=== PATIENT | female | born 1995 | race Caucasian/White ===

== ENCOUNTER 2018-10-18 17:09 | Emergency (ER) | payer OTHER ==
[2018-10-18] MEDS ORDERED: NS 1,000 ML IV ONE (17:37)
[2018-10-18 17:45] LABS: PLATELET COUNT 249 10^3/uL (150-400)
--- NOTE | 2018-10-18 18:42 | EDPHY ---
H & P Stated Complaint: vaginal bleeding x 1 week L lower and upper abd pain-~8wks preg by dates Time Seen by Provider: 10/18/18 17:19 HPI/ROS: Chief complaint: with pelvic pain and vaginal bleeding History of present illness: This is a 22-year-old female, 1, para 0 who believes she is currently 8 weeks who presents to the emergency department with pelvic pain and vaginal bleeding. She states she has had mild vaginal bleeding for the last few days. There has been some clot passage. She has now started developed some pelvic pain, primarily on the left. She is concerned she has an ectopic or is having a miscarriage. She denies other associated signs or symptoms including fevers, no urinary or bowel habit changes, no nausea or vomiting, no systemic symptoms such as dizziness, lightheadedness or fatigue. She has not seen an OBGYN as of yet. Review of systems: A 10 point review of systems was obtained and other than described above was negative - Personal History LMP (Females 10-55): Now - Medical/Surgical History Hx Asthma: No Hx Chronic Respiratory Disease: No Hx Diabetes: No Hx Cardiac Disease: No Hx Renal Disease: No Hx Cirrhosis: No Hx Alcoholism: No Hx HIV/AIDS: No Hx Splenectomy or Spleen Trauma: No Other PMH: denies - Social History Smoking Status: Never smoked - Physical Exam Exam: General Appearance: Alert, no distress. Eyes: Pupils equal and round no pallor or injection. ENT, Mouth: Mucous membranes moist. Respiratory: There are no retractions, lungs are clear to auscultation. Cardiovascular: Regular rate and rhythm. Gastrointestinal: Abdomen is soft and non tender, no masses, bowel sounds normal. Neurological: Alert and oriented x4. Strength and sensation intact and symmetrical. Skin: Warm and dry, no rashes. Musculoskeletal: Neck is supple non tender. Extremities are symmetrical, full range of motion. Psychiatric: Patient is oriented X 3, there is no agitation. Constitutional: Initial Vital Signs Temperature (C) 37.0 C 10/18/18 17:10 Heart Rate 89 10/18/18 17:10 Respiratory Rate 16 10/18/18 17:10 Blood Pressure 101/65 10/18/18 17:10 O2 Sat (%) 97 10/18/18 17:10 O2 Delivery Mode Room Air Allergies/Adverse Reactions: No Known Allergies Allergy (Unverified 10/18/18 17:10) Home Medications: Medication Instructions Recorded NK [No Known Home Meds] 10/18/18 Medical Decision Making - Diagnostics Imaging Results: Imaging Impressions Obstetrics Ultrasound 10/18/18 17:37 Impression: No intrauterine is visualized which could have already passed with a history of bleeding. Correlate to beta hCG for possible ectopic . Endometrial stripe measures 10 mm with some mild vascularity so component of retained product of conception cannot be excluded. Results called and discussed with DEVON Fritz at 10/18/2018 18:28. Imaging: Discussed imaging studies w/ call box wirer Radiologist ED Course/Re-evaluation: Patient is discussed with my secondary supervising physician Dr. Deion Castorena. Patient presents to the emergency department, she believes she is 8 weeks , she has vaginal bleeding and pelvic pain. Blood studies show a normal H&H. HCG in the mid 800s. Ultrasound does not show significant findings. I have discussed with her the multiple causes of her symptoms, likely a miscarriage although we cannot rule out ectopic at this time. Her blood type is B negative, she will be given RhoGAM. She remains hemodynamically stable. I have offered pain medication but she has declined. I have asked her to follow up with an OBGYN on Saturday for repeat HCG. She is given strict return precautions. The patient voiced understanding and agreement with plan. Differential Diagnosis: Included but not limited to , different types of miscarriages, ectopic - Data Points Laboratory Results: Laboratory Results 10/18/18 17:30 10/18/18 17:30 10/18/18 10/18/18 10/18/18 17:45 17:30 17:30 WBC RBC Hgb Hct MCV MCH MCHC RDW Plt Count MPV Neut % (Auto) Lymph % (Auto) [place] % (Auto) Eos % (Auto) Baso % (Auto) Nucleat RBC Rel Count Absolute Neuts (auto) Absolute Lymphs (auto) Absolute Monos (auto) Absolute Eos (auto) Absolute Basos (auto) Absolute Nucleated RBC Immature Gran % Immature Gran # Sodium 141 mEq/L mEq/L (135-145) Potassium 3.7 mEq/L mEq/L (3.3-5.0) Chloride 106 mEq/L mEq/L (97-110) Carbon Dioxide 24 mEq/l mEq/l (22-31) Anion Gap 11 mEq/L mEq/L (6-14) BUN 11 mg/dL mg/dL (7-23) Creatinine 0.8 mg/dL mg/dL (0.6-1.0) Estimated GFR > 60 Glucose 93 mg/dL mg/dL (70-100) Calcium 9.5 mg/dL mg/dL (8.5-10.4) Beta HCG, Quant 841.30 mIU/mL H mIU/mL (0.00-4.83) Urine Color YELLOW Urine Appearance HAZY Urine pH 5.0 (5.0-7.5) Ur Specific [place] 1.013 (1.002-1.030) Urine Protein NEGATIVE (NEGATIVE) Urine Ketones TRACE H (NEGATIVE) Urine Blood 2+ H (NEGATIVE) Urine Nitrate NEGATIVE (NEGATIVE) Urine Bilirubin NEGATIVE (NEGATIVE) Urine Urobilinogen NEGATIVE EU EU (0.2-1.0) Ur Leukocyte Esterase TRACE H (NEGATIVE) Urine RBC 1-3 /hpf /hpf (0-3) Urine WBC 1-3 /hpf /hpf (0-3) Ur Epithelial Cells TRACE /lpf /lpf (NONE-1+) Urine Mucus 1+ /lpf /lpf (NONE-1+) Urine Glucose NEGATIVE (NEGATIVE) Patient ABO/Rh B NEGATIVE Antibody Screen NEGATIVE 10/18/18 17:30 WBC 6.86 10^3/uL 10^3/uL (3.80-9.50) RBC 4.35 10^6/uL 10^6/uL (4.18-5.33) Hgb 13.1 g/dL g/dL (12.6-16.3) Hct 39.1 % % (38.0-47.0) MCV 89.9 fL fL (81.5-99.8) MCH 30.1 pg pg (27.9-34.1) MCHC 33.5 g/dL g/dL (32.4-36.7) RDW 12.5 % % (11.5-15.2) Plt Count 249 10^3/uL 10^3/uL (150-400) MPV 12.5 fL H fL (8.7-11.7) Neut % (Auto) 52.1 % % (39.3-74.2) Lymph % (Auto) 40.1 % % (15.0-45.0) [place] % (Auto) 6.0 % % (4.5-13.0) Eos % (Auto) 0.9 % % (0.6-7.6) Baso % (Auto) 0.6 % % (0.3-1.7) Nucleat RBC Rel Count 0.0 % % (0.0-0.2) Absolute Neuts (auto) 3.58 10^3/uL 10^3/uL (1.70-6.50) Absolute Lymphs (auto) 2.75 10^3/uL 10^3/uL (1.00-3.00) Absolute Monos (auto) 0.41 10^3/uL 10^3/uL (0.30-0.80) Absolute Eos (auto) 0.06 10^3/uL 10^3/uL (0.03-0.40) Absolute Basos (auto) 0.04 10^3/uL 10^3/uL (0.02-0.10) Absolute Nucleated RBC 0.00 10^3/uL 10^3/uL (0-0.01) Immature Gran % 0.3 % % (0.0-1.1) Immature Gran # 0.02 10^3/uL 10^3/uL (0.00-0.10) Sodium Potassium Chloride Carbon Dioxide Anion Gap BUN Creatinine Estimated GFR Glucose Calcium Beta HCG, Quant Urine Color Urine Appearance Urine pH Ur Specific [place] Urine Protein Urine Ketones Urine Blood Urine Nitrate Urine Bilirubin Urine Urobilinogen Ur Leukocyte Esterase Urine RBC Urine WBC Ur Epithelial Cells Urine Mucus Urine Glucose Patient ABO/Rh Antibody Screen Medications Given: Discontinued Medications Sodium Chloride (Ns) 1,000 mls @ 0 mls/hr IV EDNOW ONE; Wide Open PRN Reason: Protocol Stop: 10/18/18 17:38 Last Admin: 10/18/18 17:43 Dose: 1,000 mls Departure - Departure Disposition: Home, Routine, Self-Care Clinical Impression: Threatened Condition: Good Instructions: Threatened Miscarriage (ED) Additional Instructions: Please follow-up with your OBGYN or our OBGYN on Saturday for recheck and a repeat HCG You're HCG this evening was 841.30 You can let your OBGYN know that your blood type is B negative and you were given RhoGAM in the emergency department You can take Tylenol for discomfort as directed on the label. Avoid the use of NSAIDs such as ibuprofen, Motrin, Advil, Aleve until told you can use these by your OBGYN. If symptoms worsen or new symptoms develop including increasing pain, increasing bleeding or any other signs or symptoms return immediately to the emergency department Referrals: NONE *PRIMARY CARE P,. [Primary Care Provider] - As per Instructions Glenys Roblero MD [Medical Doctor] - As per Instructions
[2018-10-18 19:43] VITALS: BP 111/62
== END 2018-10-18 19:36 | disposition home or self-care (01) ==
DX: O26.851 Spotting complicating pregnancy, first trimester (principal); Z3A.01 Less than 8 weeks gestation of pregnancy

== ENCOUNTER 2019-02-22 11:07 | Emergency (ER) | payer OTHER ==
[2019-02-22] MEDS ORDERED: ONDANSETRON 4 MG/2 ML VIAL IVP ONE (11:46)
[2019-02-22] MEDS ORDERED: NS 1,000 ML IV ONE (11:46)
--- NOTE | 2019-02-22 11:49 | EDPHY ---
H & P Stated Complaint: Left lower tooth infection, on antibiotics, vomited blood. Time Seen by Provider: 02/22/19 11:17 HPI/ROS: CHIEF COMPLAINT: Dental infection, single episode of hematemesis HISTORY OF PRESENT ILLNESS: The patient has had several day history of a dental infection. She saw a dentist last week who started her on antibiotics and has referred her to a oral surgeon. The patient is taking Advil and had been on amoxicillin. Secondary to increasing pain she went to urgent care and was switched to doxycycline today. After taking doxycycline she had an episode of vomiting. She reported some hematemesis. The patient denies any melena or epigastric pain. She has no history of GI bleeding. The patient does have decreased appetite an upset stomach. REVIEW OF SYSTEMS: A comprehensive 10 point review of systems is otherwise negative aside from elements mentioned in the history of present illness. Source: Patient Exam Limitations: No limitations - Personal History Current Tetanus Diphtheria and Acellular Pertussis (TDAP): Yes - Medical/Surgical History Hx Asthma: No Hx Chronic Respiratory Disease: No Hx Diabetes: No Hx Cardiac Disease: No Hx Renal Disease: No Hx Cirrhosis: No Hx Alcoholism: No Hx HIV/AIDS: No Hx Splenectomy or Spleen Trauma: No Other PMH: denies - Social History Smoking Status: Never smoked - Physical Exam Exam: General Appearance: Alert, no distress Eyes: Pupils equal and round no pallor or injection ENT, Mouth: Mild left-sided mandibular swelling, no trismus Respiratory: There are no retractions, lungs are clear to auscultation Cardiovascular: Regular rate and rhythm Gastrointestinal: Abdomen is soft and nontender, no masses, bowel sounds normal Neurological: 5/5 strength noted all 4 extremities Skin: Warm and dry, no rashes Musculoskeletal: Neck is supple nontender Extremities: symmetrical, full range of motion Constitutional: Initial Vital Signs Temperature (C) 37.1 C 02/22/19 11:08 Heart Rate 99 02/22/19 11:08 Respiratory Rate 18 02/22/19 11:08 Blood Pressure 104/71 02/22/19 11:08 O2 Sat (%) 98 02/22/19 11:08 O2 Delivery Mode Room Air O2 (L/minute) 1 Allergies/Adverse Reactions: No Known Allergies Allergy (Unverified 10/18/18 17:10) Home Medications: Medication Instructions Recorded Doxycycline Hyclate 02/22/19 Hydrocodone/APAP 5/325 [Isabella 1 - 2 each PO Q6 PRN #20 tab 02/22/19 5/325] Ondansetron Odt [Zofran Odt] 4 mg PO Q4PRN PRN #20 tab 02/22/19 Medical Decision Making ED Course/Re-evaluation: The patient presents to the ED with nausea, vomiting, decreased appetite in the setting of an apical abscess an antibiotic use. The patient reported 1 episode of hematemesis prior to arrival. The patient was quite anxious upon arrival. She was hemodynamically stable. The patient had an IV established. She received a L of normal saline. She received Zofran 4 mg of morphine. The patient was observed in the emergency department. She has no evidence of a critical anemia. She was given Zofran. I re-evaluated her at 1:15 p.m.. She is now eating without any recurrent emesis. She is feeling much better. We discussed the possibility of scant hematemesis as being precipitated by her NSAID usage or potentially her antibiotics. I do not feel that she needs to be admitted for endoscopy given the fact she has had no recurrent symptoms. The patient is scheduled to follow up with an oral surgeon tomorrow and also been given the contact number of our on-call oral surgeon. The patient is advised to use Zofran as needed for nausea and vomiting. The patient can take Isabella as needed for pain. Patient has been advised to return to the ED immediately for any increasing pain , recurrent vomiting, melena, severe hematemesis or other concerns. Differential Diagnosis: Differential diagnosis considered includes dehydration, metabolic derangement, peptic ulcer disease, medication side effect, gastritis - Data Points Laboratory Results: Laboratory Results 02/22/19 11:50 02/22/19 11:50 02/22/19 02/22/19 02/22/19 11:50 11:50 11:50 WBC 7.98 10^3/uL 10^3/uL (3.80-9.50) RBC 4.51 10^6/uL 10^6/uL (4.18-5.33) Hgb 13.6 g/dL g/dL (12.6-16.3) Hct 40.3 % % (38.0-47.0) MCV 89.4 fL fL (81.5-99.8) MCH 30.2 pg pg (27.9-34.1) MCHC 33.7 g/dL g/dL (32.4-36.7) RDW 12.1 % % (11.5-15.2) Plt Count 177 10^3/uL 10^3/uL (150-400) MPV 12.7 fL H fL (8.7-11.7) Neut % (Auto) 80.5 % H % (39.3-74.2) Lymph % (Auto) 10.2 % L % (15.0-45.0) [place] % (Auto) 8.6 % % (4.5-13.0) Eos % (Auto) 0.1 % L % (0.6-7.6) Baso % (Auto) 0.3 % % (0.3-1.7) Nucleat RBC Rel Count 0.0 % % (0.0-0.2) Absolute Neuts (auto) 6.43 10^3/uL 10^3/uL (1.70-6.50) Absolute Lymphs (auto) 0.81 10^3/uL L 10^3/uL (1.00-3.00) Absolute Monos (auto) 0.69 10^3/uL 10^3/uL (0.30-0.80) Absolute Eos (auto) 0.01 10^3/uL L 10^3/uL (0.03-0.40) Absolute Basos (auto) 0.02 10^3/uL 10^3/uL (0.02-0.10) Absolute Nucleated RBC 0.00 10^3/uL 10^3/uL (0-0.01) Immature Gran % 0.3 % % (0.0-1.1) Immature Gran # 0.02 10^3/uL 10^3/uL (0.00-0.10) Sodium 137 mEq/L mEq/L (135-145) Potassium 4.0 mEq/L mEq/L (3.5-5.2) Chloride 103 mEq/L mEq/L (97-110) Carbon Dioxide 21 mEq/l L mEq/l (22-31) Anion Gap 13 mEq/L mEq/L (6-14) BUN 10 mg/dL mg/dL (7-23) Creatinine 0.8 mg/dL mg/dL (0.6-1.0) Estimated GFR > 60 Glucose 86 mg/dL mg/dL (70-100) Calcium 9.3 mg/dL mg/dL (8.5-10.4) Beta HCG, Qual NEGATIVE Medications Given: Discontinued Medications Al Hydroxide/Mg Hydroxide (Maalox Susp) 30 ml PO ONCE ONE Stop: 02/22/19 12:16 Last Admin: 02/22/19 12:21 Dose: 30 ml Hyoscyamine Sulfate (Levsin, Hyomax-Sl) 0.25 mg PO ONCE ONE Stop: 02/22/19 12:16 Last Admin: 02/22/19 12:21 Dose: 0.25 mg Sodium Chloride (Ns) 1,000 mls @ 0 mls/hr IV EDNOW ONE; Wide Open PRN Reason: Protocol Stop: 02/22/19 11:47 Last Admin: 02/22/19 11:50 Dose: 1,000 mls Lidocaine (Lidocaine 2% Viscous) 15 ml PO ONCE ONE Stop: 02/22/19 12:16 Last Admin: 02/22/19 12:21 Dose: 15 ml Morphine Sulfate (Morphine) 4 mg IVP EDNOW ONE Stop: 02/22/19 11:48 Last Admin: 02/22/19 11:53 Dose: 4 mg Ondansetron HCl (Zofran) 4 mg IVP EDNOW ONE Stop: 02/22/19 11:47 Last Admin: 02/22/19 11:55 Dose: 4 mg Departure - Departure Disposition: Home, Routine, Self-Care Clinical Impression: Apical abscess Condition: Good Instructions: Dental Abscess (ED) Additional Instructions: 1. Zofran as needed for nausea. 2. Isabella as needed for severe pain. 3. Continue your regular antibiotics. 4. Please contact the oral surgeon you have been referred to to schedule a follow-up visit. Be sure to tell them that your in the emergency department yesterday and referred to their practice. 5. Return to the ED immediately for any recurrent vomiting of blood, dark or tarry stools or other concerns. 6. I do recommend stopping ibuprofen at this point time as that can be upsetting to the stomach. Referrals: Russell Connell MD [Medical Doctor] - As per Instructions
[2019-02-22] MEDS ORDERED: LIDOCAINE 2% VISCOUS 15 ML UDCUP PO ONE (12:15)
[2019-02-22] MEDS ORDERED: MAG HYDROX/AL HYDROX/SIMETH 30 ML UDCUP PO ONE (12:15)
[2019-02-22] MEDS ORDERED: HYOSCYAMINE SULFATE 0.125 MG TAB PO ONE (12:15)
[2019-02-22 12:19] LABS: PLATELET COUNT 177 10^3/uL (150-400)
[2019-02-22 13:25] VITALS: BP 110/68
== END 2019-02-22 13:39 | disposition home or self-care (01) ==
DX: K92.0 Hematemesis (principal); K04.7 Periapical abscess without sinus; E86.9 Volume depletion, unspecified; Z79.2 Long term (current) use of antibiotics
CPT/HCPCS: 96374; J2270; J2405